=== PATIENT | male | born 1970 | race Caucasian/White ===

== ENCOUNTER 2023-11-23 07:07 | Emergency (ER) | payer OTHER, SELFPAY ==
[2023-11-23] VITALS (8 sets, daily range): BP systolic 147–184; BP diastolic 80–109; PULSE 49–90; RESP 16–20; TEMP 36.4–37; O2SAT 90–100; BMI 42.0
--- NOTE | 2023-11-23 07:21 | CT_ITS ---
INDICATION: Kidney Stone RIGHT FLANK PAIN EXAMINATION: CT ABDOMEN AND PELVIS WITHOUT CONTRAST - CT Abdomen And Pelvis W/O Contrast Injection TECHNIQUE: Helically acquired images were obtained of the abdomen and pelvis without oral or IV contrast. The protocol utilizes one or more of the following dose reduction techniques: automated exposure control, adjustment of mA and/or kV according to patient size,and/or use of iterative reconstruction technique. IV Contrast dosage and agent: None. Oral contrast: None. RADIATION DOSAGE (If Supplied By Facility): CTDIvol = ( 23.63 ) mGy, DLP = ( 1304.53 ) mGycm COMPARISON: No relevant prior comparison study available FINDINGS: LOWER CHEST: Lung bases are clear. No cardiomegaly or pericardial effusion. The lack of intravenous contrast limits evaluation of solid visceral organs. LIVER: Homogeneous. No focal mass. GALLBLADDER AND BILIARY TREE: No calcified gallstones. No gallbladder distension or wall edema. No intra- or extrahepatic biliary ductal dilation. PANCREAS: No focal cystic or solid mass. SPLEEN: Normal size without focal cystic or solid mass. ADRENAL GLANDS: No nodules. KIDNEYS AND URETERS: Normal renal size and position. There is right-sided hydroureteronephrosis secondary to a 6.4 mm calculus within the mid ureter. There are additional nonobstructing right renal calculi measuring up to 5.8 mm. PERITONEUM: No ascites or free air. No other fluid collection. BOWEL: No stomach or bowel distension. There is a diverticulum arising from the duodenum. There are diverticula arising from the colon. There is nonvisualization of the appendix. No focal inflammatory change. LYMPH NODES: No enlarged mesenteric or retroperitoneal lymph nodes. VESSELS: Aorta is non-dilated. URINARY BLADDER: Unremarkable. REPRODUCTIVE ORGANS: No pelvic masses. ABDOMINAL WALL: No discrete abdominal or pelvic wall hernia. BONES: No lytic or blastic abnormality. There are degenerative changes of the visualized thoracic and lumbar spine. CT/Abdomen/Pelvis without Cont IMPRESSION: Right-sided hydroureteronephrosis secondary to a 6.4 mm calculus within the mid ureter. Nonobstructing right renal calculi measuring up to 5.8 mm. Colonic diverticulosis. Electronically Signed: Brie Saldana MD at 8:08 EDT ,
--- NOTE | 2023-11-23 07:21 | EDS_ITS ---
HPI History of Present Illness Chief Complaint: Flank Pain Informant: patient and spouse/S.O. Narrative Narrative: Sudden right flank pain 4:30 AM this morning. No radicular pain. Nausea and vomiting secondary to pain. No urinary symptoms. No fevers or chills. History of kidney stone 12 years ago requiring stent and lithotripsy. History of gout on allopurinol. Allergies to colchicine. No history of kidney disease or gastric ulcers. Prior similar symptoms: Yes PFSH PFSH Medical History Gout Kidney stones Home Medications ?Medication ?Instructions ?Recorded ?Last Taken ?Type allopurinol 300 mg tablet 300 mg PO DAILY 11/23/23 11/22/23 History Allergy/AdvReac Type Severity Reaction Status Date / Time colchicine Allergy Abd Verified 11/23/23 07:08 cramps/diarrhea Surgical History History of lithotripsy Hx of appendectomy Social History Smoking Status: Never smoker ROS ROS ED Constitutional Constitutional ED: Denies chills, fever(s) or sweats Eyes Eyes: Denies change in vision ENT ENT ED: Denies dysphagia or sore throat Cardiovascular Cardiovascular: Denies chest pain, leg edema, palpitations or racing heartbeat Respiratory/Chest Respiratory/Chest: Denies cough, dyspnea or dyspnea on exertion Gastrointestinal Gastrointestinal: Reports nausea and vomiting; Denies abdominal pain or diarrhea Genitourinary Genitourinary ED: Denies dysuria, hematuria or urinary frequency Musculoskeletal Musculoskeletal: Reports back pain; Denies extremity pain or neck pain Integumentary Denies rash or wounds Neurologic Neurologic: Denies headache(s), paresthesias or weakness EXAM Physical Exam Const Vital Signs: 11/23/23 07:09 11/23/23 08:12 11/23/23 09:00 Temperature 98.6 F Temperature Source Temporal Pulse Rate 82 54 L 90 Respiratory Rate 16 16 Blood Pressure 156/109 H 155/101 H 147/80 H Blood Pressure Mean 124 119 102 Pulse Ox 98 98 90 Oxygen Delivery Method Room Air Room Air Room Air Oxygen Flow Rate (L/min) 11/23/23 10:00 11/23/23 11:31 11/23/23 12:00 Temperature Temperature Source Pulse Rate 49 L 74 68 Respiratory Rate 18 20 H 16 Blood Pressure 169/104 H 164/98 H 154/93 H Blood Pressure Mean 125 120 113 Pulse Ox 99 98 96 Oxygen Delivery Method Nasal Cannula Room Air Oxygen Flow Rate (L/min) 2 2 Positive well nourished and well developed Constitutional Narrative: Uncomfortable nontoxic General Appearance ED: well developed HEENT Reports moist mucous membranes normocephalic and atraumatic Eyes EOMs intact bilaterally and conjunctivae normal General Eye ED: Yes normal appearance of both eyes Neck no lymphadenopathy and supple General: Negative for tenderness Chest Wall Chest: Negative for tenderness Resp normal respiratory effort and normal air movement Effort and Inspection: symmetric chest movement; Negative for respiratory distress Cardio regular rate, regular rhythm and no murmurs Peripheral Pulses: pulses 2+ throughout GI normal to inspection, nondistended, normoactive bowel sounds and non-tender Palpation: Negative for guarding or rebound tenderness present Back/Spine no CVA tenderness and no thoracic nor lumbar tenderness Extremity normal to inspection General Extremety ED: Negative for edema or tenderness General Extremity: Negative for edema Neuro oriented x3 and no sensory deficits noted Sensorium / Orientation: awake and alert Skin no rashes or lesions noted and no wounds MDM MDM MDM Narrative Medical decision making narrative: Interventions / MDM: Differential diagnosis: Kidney stone, complicated UTI Diagnosis considered but do not suspect: Colitis My EKG interpretation: N/A Imaging independently reviewed and interpreted by myself: CT abdomen pelvis: 6.4 mm mid ureteral stone on the right side hydronephrosis. External documents reviewed: N/A Test considered but not ordered:N/A ED course: Sudden flank pain nausea and vomiting. Is uncomfortable. History of kidney stones with similar presentation. Renal stone protocol, IV established fluids Zofran morphine and Toradol ordered. Flank CT ordered for further evaluation. 0800: CT scan interpreted myself concerns for proximal ureteral stone 5 mm. Pain was easing off however still there. Creatinine at 1.45 with no old for comparison. Fluids are running. White count 8. Urine pending. Will redosed morphine at this time. 1100: Patient required additional dose of pain medicine for which Dilaudid was given. Symptoms more controlled however still there. Urine returning with concern for infection noting leukocytes of 500 WBCs 25-50 with 2+ bacteria. Urine culture sent. He is covered Rocephin. No urologist available at facility currently, discussed with patient's mother, will require transfer to capable facility due to complicated UTI with obstructive stone. 1220: I spoke with urologist at [facility] Dr. Delmer Celeste, he would like to keep him n.p.o. With limited beds at their facility he will be transferred to the ED for admission through urology service. Potential intervention today per Dr. Celeste. 1255: Transport will be here in the next 20 minutes. Will dose with 0.5 mg IV Dilaudid and addition of Zofran IV prior to transport. Re-evaluation: stable Disposition discussed with patient/family/significant other: Patient and significant other Case discussed with consulting clinician: Urology [facility] This note was generated with [employer] dictation software. It may contain incorrect words, spelling, and punctuation that were not noted in checking the note before signing. Lab Data Attestation: I reviewed the patient's lab results. Labs: Laboratory Results - last 24 hr 11/23/23 11/23/23 07:17 09:24 WBC 8.0 RBC 5.00 Hgb 16.0 Hct 45.8 MCV 91.6 MCH 32.0 MCHC 34.9 RDW Std Deviation 40.0 RDW Coeff of Vel 12.0 Plt Count 259 MPV 9.7 Immature Gran % (Auto) 1.000 H Neut % (Auto) 44.7 L Lymph % (Auto) 38.5 [place] % (Auto) 10.0 Eos % (Auto) 4.8 Baso % (Auto) 1.0 Absolute Neuts (auto) 3.6 Absolute Lymphs (auto) 3.07 Nucleated RBC % 0 Sodium 141 Potassium 3.9 Chloride 112 H Carbon Dioxide 25.0 Anion Gap 5 BUN 22 H Creatinine 1.45 H Estim Creat Clear Calc 88.69 Est GFR (MDRD) Af Amer 66 Est GFR (MDRD) Non-Af 55 L BUN/Creatinine Ratio 15.2 Glucose 110 H Calcium 9.1 Urine Color Yellow Urine Clarity Sl. Cloudy Urine pH 6.0 Ur Specific [place] 1.020 Urine Protein 30 H Urine Glucose (UA) Normal Urine Ketones Negative Urine Occult Blood 250 H Urine Nitrite Negative Urine Bilirubin Negative Urine Urobilinogen Normal Ur Leukocyte Esterase 500 H Urine RBC 10-25 SEEN Urine WBC 25-50 SEEN Ur Squamous Epith Cells 0-5 SEEN Urine Bacteria 2+ Urine Mucus 0 SEEN Radiography Diagnostic Testing: Clinical Impression(s) from Imaging Studies Abdomen/Pelvis CT 11/23/23 07:21 IMPRESSION: Right-sided hydroureteronephrosis secondary to a 6.4 mm calculus within the mid ureter. Nonobstructing right renal calculi measuring up to 5.8 mm. Colonic diverticulosis. Electronically Signed: Brie Saldana MD at 8:08 EDT , Discharge Plan Triage Chief Complaint: Flank Pain ED Provider: Lorne Bhatt Dx/Rx/DC Orders Clinical Impression: Hydronephrosis with renal and ureteral calculus obstruction, Complicated UTI (urinary tract infection), Acute right flank pain, Acute renal insufficiency Prescriptions: No Action allopurinol 300 mg tablet 300 mg PO DAILY Primary Care Provider: Kemal Harding Referrals: Kemal Harding MD [Primary Care Provider] - Print Language: Syriac Disposition Disposition: DC/Tx to Another Type of HCF
[2023-11-23] MEDS: Ketorolac 15 MG/ML Vial IV (07:27)
[2023-11-23] MEDS: Ondansetron 4 MG/2 ML Vial IV ×2 (07:27→13:03)
[2023-11-23] MEDS: Morphine 4 MG/ML Syringe IV ×2 (07:27→08:16)
[2023-11-23] MEDS: 0.9% Normal Saline (1000mL) 1,000 ML 250 ML IV ×2 (07:27→11:28)
[2023-11-23 07:45] LABS: Absolute Lymphocyte Count 3.07 X10^3/uL (0.83-4.51); Absolute Neutrophil Count 3.6 X10^3/uL (2.0-7.7); Basophil# 0.08 X10^3/uL; Eosinophil# 0.38 X10^3/uL; Eosinophils% 4.8 % (0-5); Hematocrit 45.8 % (40-54); Lymphocyte # 3.07 X10^3/ul (0.83-4.51); Lymphocyte % 38.5 % (19-41); Mean Corp Hgb Conc 34.9 g/dL (32-36); Mean Corpuscular Volume 91.6 fL (80-94); Mean Platelet Vol. 9.7 fl (6.2-12.0); NRBC Flagged by Analyzer 0 % (0-5); Neutrophil # 3.56 X10^3/uL (2.7-7.7); Neutrophil % 44.7 % (47-70); Platelet Count 259 K/mm3 (150-450)
[2023-11-23 07:52] LABS: Anion Gap 5 (5-15); BUN 22 mg/dL (7-18); BUN/Creat Ratio 15.2 RATIO (10-20); Calcium,Total 9.1 mg/dL (8.5-10.1); Chloride 112 mmol/L (98-107); Creatinine, Serum 1.45 mg/dL (0.70-1.30); EST Glomerular Filtration Rate 55 mL/min (>60); Est Glom Filt Rate - Afr Amer 66 mL/min (>60); Estimated Creatinine Clearance 88.69 ml/min; Glucose 110 mg/dL (74-106); Potassium 3.9 mmol/L (3.5-5.1); Sodium Level 141 mmol/L (136-145)
[2023-11-23 09:28] LABS: Mucous, Urine 0 SEEN /hpf (<or=2+)
[2023-11-23 09:36] LABS: Color, Urine Yellow (Yellow); Glucose, Dipstick Normal (Normal); Ketone-Dipstick Negative (Negative); Leukocyte Esterase-Dipstick 500 /ul (Negative); Nitrite-Dipstick Negative (Negative); Occult Blood-Urine 250 /ul (Negative); Protein-Dipstick 30 mg/dl (Negative); Urine Bilirubin Dipstick Negative (Negative); Urine Clarity Sl. Cloudy (Clear); Urine Urobilinogen Normal (Normal)
[2023-11-23 09:44] LABS: Bacteria 2+ /hpf (None Seen); Red Blood Cells-Urine 10-25 SEEN /hpf (0-5); White Blood Cells 25-50 SEEN /hpf (0-5)
[2023-11-23 09:45] LABS: Squamous Epithelial Cells - UA 0-5 SEEN /hpf (0-5)
[2023-11-23] MEDS: 0.9% Normal Saline (1000mL) 1,000 ML 999 ML IV (09:50)
[2023-11-23] MEDS: HYDROmorphone 1 MG/ML Syringe IV (09:51)
[2023-11-23] MEDS: Ceftriaxone 1 GM/50 ML BAG IV (10:20)
--- NOTE | 2023-11-23 11:39 | NURSING ---
CALLED [facility] RAD TRANSMITTED FAXED FACESHEET
[2023-11-23] MEDS: HYDROmorphone 0.5 MG/0.5 ML SYRINGE IV (13:03)
--- NOTE | 2023-11-23 13:38 | ED.RN ---
this Rn updated dr. Bhatt of hypertension. Dr. bhatt stated he did not want to medicate with anything BP specific d/t no history of HTN, he beleives pressure to be pain related.
== END 2023-11-23 13:39 | disposition other institution (70) ==
PROVIDERS: Emergency Provider Emergency Medicine; PCP Family Medicine Adult Medicine; Visit Provider Emergency Medicine
DX: N13.6 Pyonephrosis (principal); Z87.442 Personal history of urinary calculi; N20.2 Calculus of kidney with calculus of ureter
CPT/HCPCS: 74176; 80048; 81001; 85025; 87077; 87086; 87088; 87186; 96361; 96374; 96375; 96376; 99284; J7030; A4216; J2405